=== PATIENT | female | born 1935 | race Caucasian/White ===

== ENCOUNTER 2017-10-08 12:51 | Inpatient (IN) | payer MEDICARE, OTHER ==
[2017-10-08] MEDS ORDERED: Sodium Chloride 0.9% 1,000 ML IV ONE (13:15)
--- NOTE | 2017-10-08 14:27 | EDM.PDOC ---
ED HPI GENERAL MEDICAL PROBLEM - General Chief Complaint: General Stated Complaint: NOT EATING OR DRINKING Time Seen by Provider: 10/08/17 13:00 Source of Information: Reports: Patient, Family History Limitations: Reports: Altered Mental Status, Physical Impairment - History of Present Illness INITIAL COMMENTS - FREE TEXT/NARRATIVE: 82 y.o.w.f came with her son to [facility] mental status changes. Pt is nonverbal for quite some time. Poor po intake in the past few days/weeks, last BM a few days ago, urine out put? Pt is npt able to give a HPI due to severe lethargy. BP 119/61 Temp 36.8 O2 94% on RA RR 20 Onset Date: 10/01/17 Onset Time: 06:00 Duration: Week(s):, Getting Worse Location: Reports: Generalized Severity: Severe - Related Data Allergies Allergy/AdvReac Type Severity Reaction Status Date / Time No Known Allergies Allergy Verified 10/08/17 13:35 Home Meds: Home Meds QUEtiapine [SEROquel] 25 mg PO BID 06/19/13 [History] Phytonadione [Vitamin K] 200 mcg PO DAILY 05/03/16 [History] glipiZIDE [Glipizide ER] 5 mg PO DAILY 05/03/16 [History] Acetaminophen [Tylenol] 650 mg PO Q6H PRN #0 tablet 05/04/16 [Rx] Warfarin [Coumadin] 2.5 mg PO SUMOWETHFR 05/04/16 [History] Warfarin [Coumadin] 3.75 mg PO TUSA 05/04/16 [History] Past Medical History HEENT History: Reports: Impaired Vision Cardiovascular History: Reports: Afib Gastrointestinal History: Reports: GERD 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 Endocrine/Metabolic History: Reports: Diabetes, Type II - Past Surgical History Female Surgical History: Reports: Section Social & Family History - Family History Family Medical History: Unobtainable Neurological: Reports: Cerebral Aneurysms Endocrine/Metabolic: Reports: Diabetes, type II - Tobacco Use Smoking Status *Q: Unknown Ever Smoked Years of Tobacco use: 1 Packs/Tins Daily: 0.1 - Caffeine Use Caffeine Use: Reports: None Other Caffeine Use: Unknown at this time. - Alcohol Use Days Per Week of Alcohol Use: 0 - Recreational Drug Use Recreational Drug Use: No ED ROS GENERAL - Review of Systems Review Of Systems: Unable To Obtain ED EXAM, GENERAL - Physical Exam Exam: See Below Exam Limited By: Altered Mental Status General Appearance: Lethargic, Severe Distress Eye Exam: Bilateral Eye: Abnormal EOM Ears: Normal External Exam Ear Exam: Bilateral Ear: Auricle Normal Nose: Normal Inspection, Normal Mucosa Throat/Mouth: No Airway Compromise, Other (dry mucosal membrane) Head: Atraumatic, Normocephalic Neck: Normal Inspection, Supple, Non-Tender, Full Range of Motion Respiratory/Chest: Lungs Clear (poor inspiratory effort), Other Cardiovascular: Normal Peripheral Pulses, Regular Rate, Rhythm, No JVD, No Murmur Peripheral Pulses: 1+: Brachial (L) GI/Abdominal: Normal Bowel Sounds (Female) Exam: Deferred Rectal (Female) Exam: Deferred Back Exam: Normal Inspection, Full Range of Motion Extremities: Normal Inspection, Normal Range of Motion Neurological: Inattentive, Confused, Slow to Respond, Abnormal Gait (unable to ambulate) Psychiatric: Depressed Mood, Flat Affect Skin Exam: Warm, Dry, Intact, Pallor Lymphatic: No Adenopathy EKG INTERPRETATION EKG Date: 10/08/17 Time: 13:15 Rhythm: NSR Rate (Beats/Min): 108 Somers: LAD-Left Somers Deviation P-Wave: Present QRS: Normal ST-T: Normal QT: Normal Comparison: NA - No Prior EKG Course - Vital Signs Text/Narrative:: 82 y.o.w.f came with her son to [facility] mental status changes. Pt is nonverbal for quite some time. Poor po intake in the past few days/weeks, last BM a few days ago, urine out put? Pt is not able to give a HPI due to severe lethargy. BP 119/61 Temp 36.8 O2 94% on RA RR 20 PE: obtunded 82 y.o.w.f severe dehydrated Labs: Na 170 Ka 4.1 Cr 5.67 Cl 131. Impression: Hypernatremia, Acute renal insuff, Hyperchloremia, severe dehydration, Anuria, Hyperglycemia Tx: NS/1/2NS 2.21 pm Consultation: Dr. Pennington: accepted pt for admission to ICU Last Recorded V/S: Last Vital Signs Temp 35.4 C 10/12/17 08:00 Pulse 71 10/12/17 04:00 Resp 18 10/12/17 08:00 BP 122/79 10/12/17 08:00 Pulse Ox 98 10/12/17 08:00 - Orders/Labs/Meds Orders: Medication Orders Aspirin (Ecotrin) 325 mg PO DAILY [facility] Last Admin: 10/12/17 10:35 Dose: 325 mg Donepezil HCl (Aricept) 5 mg PO DAILY [facility] Last Admin: 10/12/17 10:35 Dose: 5 mg Insulin Aspart (Novolog) 0 unit SUBCUT QIDACANDBED [facility] PRN Reason: Protocol Last Admin: 10/12/17 08:16 Dose: 2 units Admin: 10/11/17 21:59 Dose: 8 units Admin: 10/11/17 18:01 Dose: 4 units Admin: 10/11/17 14:36 Dose: 10 units Admin: 10/11/17 09:23 Dose: 6 units Metformin HCl (Glucophage) 500 mg PO BIDMEALS [facility] Last Admin: 10/12/17 10:35 Dose: 500 mg Mirtazapine (Remeron) 15 mg PO BEDTIME [facility] Sodium Chloride (Saline Flush) 10 ml FLUSH ASDIRECTED PRN PRN Reason: Keep Vein Open Last Admin: 10/11/17 09:26 Dose: 10 ml Labs: Laboratory Tests 10/08/17 10/08/17 10/08/17 Range/Units 13:30 13:30 13:30 WBC 11.9 (4.5-12.0) X10-3/uL RBC 6.25 H (3.23-5.20) x10(6)uL Hgb 17.7 H D (11.5-15.5) g/dL Hct 55.8 H D (30.0-51.3) % MCV 89.2 (80-96) fL MCH 28.2 (27.7-33.6) pg MCHC 31.7 L (32.2-35.4) g/dL RDW 16.2 H (11.5-15.5) % Plt Count 132 (125-369) X10(3)uL MPV 13.3 H (7.4-10.4) fL Neut % (Auto) 82.5 H (46-82) % Lymph % (Auto) 12.9 L (13-37) % Delta % (Auto) 3.9 L (4-12) % Eos % (Auto) 0 L (1.0-5.0) % Baso % (Auto) 1 (0-2) % Neut # (Auto) 9.8 H (1.6-8.3) # Lymph # (Auto) 1.5 (0.6-5.0) # Delta # (Auto) 0.5 (0.0-1.3) # Eos # (Auto) 0.0 (0.0-0.8) # Baso # (Auto) 0.1 (0.0-0.2) # PT 61.4 H* (8.7-11.1) INR 5.86 H* (0.89-1.13) Sodium 170 H* (135-145) mmol/L Potassium 4.7 (3.5-5.3) mmol/L Chloride 131 H* (100-110) mmol/L Carbon Dioxide 23 (21-32) mmol/L BUN 77 H (7-18) mg/dL Creatinine 3.4 H* (0.55-1.02) mg/dL Est Cr Clr Drug Dosing TNP Estimated GFR (MDRD) 13 L (>60) BUN/Creatinine Ratio 22.6 H (9-20) Glucose 540 H* (80-116) mg/dL Lactic Acid (0.4-2.2) mmol/L Calcium 9.6 (8.6-10.2) mg/dL Creatine Kinase (60-160) IU/L NT-Pro-B Natriuret Pep (<=450) pg/mL Urine Color (YELLOW) Urine Appearance (CLEAR) Urine pH (5.0-6.5) Ur Specific [place] (1.010-1.025) Urine Protein (NEGATIVE) mg/dL Urine Glucose (UA) (NEGATIVE) mg/dL Urine Ketones (NEGATIVE) mg/dL Urine Occult Blood (NEGATIVE) Urine Nitrite (NEGATIVE) Urine Bilirubin (NEGATIVE) Urine Urobilinogen (NEGATIVE) mg/dL Ur Leukocyte Esterase (NEGATIVE) Urine RBC (0) Urine WBC (0) Ur Squamous Epith Cells (NS,R,O) Amorphous Sediment Urine Bacteria (NS) 10/08/17 10/08/17 10/08/17 Range/Units 13:30 13:30 13:30 WBC (4.5-12.0) X10-3/uL RBC (3.23-5.20) x10(6)uL Hgb (11.5-15.5) g/dL Hct (30.0-51.3) % MCV (80-96) fL MCH (27.7-33.6) pg MCHC (32.2-35.4) g/dL RDW (11.5-15.5) % Plt Count (125-369) X10(3)uL MPV (7.4-10.4) fL Neut % (Auto) (46-82) % Lymph % (Auto) (13-37) % Delta % (Auto) (4-12) % Eos % (Auto) (1.0-5.0) % Baso % (Auto) (0-2) % Neut # (Auto) (1.6-8.3) # Lymph # (Auto) (0.6-5.0) # Delta # (Auto) (0.0-1.3) # Eos # (Auto) (0.0-0.8) # Baso # (Auto) (0.0-0.2) # PT (8.7-11.1) INR (0.89-1.13) Sodium (135-145) mmol/L Potassium (3.5-5.3) mmol/L Chloride (100-110) mmol/L Carbon Dioxide (21-32) mmol/L BUN (7-18) mg/dL Creatinine (0.55-1.02) mg/dL Est Cr Clr Drug Dosing Estimated GFR (MDRD) (>60) BUN/Creatinine Ratio (9-20) Glucose (80-116) mg/dL Lactic Acid 4.7 H (0.4-2.2) mmol/L Calcium (8.6-10.2) mg/dL Creatine Kinase 1370 H* (60-160) IU/L NT-Pro-B Natriuret Pep 560 H (<=450) pg/mL Urine Color (YELLOW) Urine Appearance (CLEAR) Urine pH (5.0-6.5) Ur Specific [place] (1.010-1.025) Urine Protein (NEGATIVE) mg/dL Urine Glucose (UA) (NEGATIVE) mg/dL Urine Ketones (NEGATIVE) mg/dL Urine Occult Blood (NEGATIVE) Urine Nitrite (NEGATIVE) Urine Bilirubin (NEGATIVE) Urine Urobilinogen (NEGATIVE) mg/dL Ur Leukocyte Esterase (NEGATIVE) Urine RBC (0) Urine WBC (0) Ur Squamous Epith Cells (NS,R,O) Amorphous Sediment Urine Bacteria (NS) 10/08/17 Range/Units 14:06 WBC (4.5-12.0) X10-3/uL RBC (3.23-5.20) x10(6)uL Hgb (11.5-15.5) g/dL Hct (30.0-51.3) % MCV (80-96) fL MCH (27.7-33.6) pg MCHC (32.2-35.4) g/dL RDW (11.5-15.5) % Plt Count (125-369) X10(3)uL MPV (7.4-10.4) fL Neut % (Auto) (46-82) % Lymph % (Auto) (13-37) % Delta % (Auto) (4-12) % Eos % (Auto) (1.0-5.0) % Baso % (Auto) (0-2) % Neut # (Auto) (1.6-8.3) # Lymph # (Auto) (0.6-5.0) # Delta # (Auto) (0.0-1.3) # Eos # (Auto) (0.0-0.8) # Baso # (Auto) (0.0-0.2) # PT (8.7-11.1) INR (0.89-1.13) Sodium (135-145) mmol/L Potassium (3.5-5.3) mmol/L Chloride (100-110) mmol/L Carbon Dioxide (21-32) mmol/L BUN (7-18) mg/dL Creatinine (0.55-1.02) mg/dL Est Cr Clr Drug Dosing Estimated GFR (MDRD) (>60) BUN/Creatinine Ratio (9-20) Glucose (80-116) mg/dL Lactic Acid (0.4-2.2) mmol/L Calcium (8.6-10.2) mg/dL Creatine Kinase (60-160) IU/L NT-Pro-B Natriuret Pep (<=450) pg/mL Urine Color Yellow (YELLOW) Urine Appearance Slightly cloudy (CLEAR) Urine pH 5.0 (5.0-6.5) Ur Specific [place] 1.025 (1.010-1.025) Urine Protein Negative (NEGATIVE) mg/dL Urine Glucose (UA) >1000 H (NEGATIVE) mg/dL Urine Ketones Negative (NEGATIVE) mg/dL Urine Occult Blood Negative (NEGATIVE) Urine Nitrite Negative (NEGATIVE) Urine Bilirubin Negative (NEGATIVE) Urine Urobilinogen Normal (NEGATIVE) mg/dL Ur Leukocyte Esterase Negative (NEGATIVE) Urine RBC 0-5 (0) Urine WBC 5-10 (0) Ur Squamous Epith Cells Moderate H (NS,R,O) Amorphous Sediment Moderate Urine Bacteria Moderate H (NS) Meds: Medications Generic Name Dose Route Start Last Admin Trade Name Freq PRN Reason Stop Dose Admin Aspirin 325 mg 10/12/17 09:15 10/12/17 10:35 Ecotrin PO 325 mg DAILY CORIE Administration Donepezil HCl 5 mg 10/12/17 09:30 10/12/17 10:35 Aricept PO 5 mg DAILY CORIE Administration Insulin Aspart 0 unit 10/11/17 08:30 10/12/17 08:16 Novolog SUBCUT 2 units QIDACANDBED CORIE Administration Protocol Metformin HCl 500 mg 10/12/17 09:30 10/12/17 10:35 Glucophage PO 500 mg BIDMEALS CORIE Administration Mirtazapine 15 mg 10/12/17 21:00 Remeron PO BEDTIME CORIE Sodium Chloride 10 ml 10/08/17 14:28 10/11/17 09:26 Saline Flush FLUSH 10 ml ASDIRECTED PRN Administration Keep Vein Open Discontinued Medications Generic Name Dose Route Start Last Admin Trade Name Freq PRN Reason Stop Dose Admin Furosemide 20 mg 10/12/17 09:15 Lasix PO BIDDIURETIC CORIE Sodium Chloride 1,000 mls @ 99 mls/hr 10/08/17 13:15 10/08/17 13:45 Normal Saline IV 10/08/17 23:21 99 mls/hr .BOLUS ONE Administration Insulin Human Regular 10 unit/ 500 mls @ 100 mls/hr 10/08/17 16:45 Dextrose/Water IV ASDIRECTED CORIE Protocol Sodium Chloride 1,000 mls @ 50 mls/hr 10/08/17 16:45 10/10/17 14:39 Sodium Chloride 0.45% IV 150 mls/hr ASDIRECTED CORIE Administration Insulin Human Regular 100 unit 100 mls @ 6.1 mls/hr 10/08/17 17:00 10/08/17 21:05 / Sodium Chloride IV 0 units/kg/hr TITRATE CORIE 0 mls/hr Protocol Titration 0.1 UNITS/KG/HR Sodium Chloride 1,000 mls @ 999 mls/hr 10/08/17 17:45 10/08/17 16:45 Sodium Chloride 0.45% IV 999 mls/hr ASDIRECTED CORIE Administration Insulin Aspart 0 unit 10/09/17 01:00 10/09/17 14:00 Novolog SUBCUT Not Given Q4H [facility] Protocol Insulin Aspart 0 unit 10/09/17 20:00 10/11/17 15:42 Novolog SUBCUT Not Given Q6H [facility]IE Protocol Ondansetron HCl 4 mg 10/08/17 14:28 Zofran IV Q4H PRN Nausea/Vomiting Rivastigmine 9.5 mg 10/12/17 09:15 Jayna RASMUSSEN DAILY [facility] Departure - Departure Time of Disposition: 19:00 Disposition: Admitted As Inpatient 68 Condition: Poor Clinical Impression: Hypernatremia - Discharge Information
[2017-10-08] MEDS ORDERED: Sodium Chloride 0.9% 10 ML Syringe FLUSH PRN (14:28)
[2017-10-08] MEDS ORDERED: Ondansetron 4 MG/2 ML SDV IV PRN (14:28)
[2017-10-08] MEDS: Sodium Chloride 0.45% 1,000 ML IV SCH ×2 (16:45→17:45)
[2017-10-08] MEDS ORDERED: Insulin Regular, Human 10 UNIT in Dextrose 10% in Water 499.9 ML IV SCH ×2 (16:45)
--- NOTE | 2017-10-08 16:51 | PCM.HP ---
H&P History of Present Illness - General Date of Service: 10/08/17 Admit Problem/Dx: Admission Diagnosis/Problem Admission Diagnosis/Problem Hypernatremia Source of Information: EMS, Family, Provider History Limitations: Reports: Altered Mental Status - History of Present Illness Initial Comments - Free Text/Narative: Molly is an 82-year-old female was severe dementia. History is taken from the son whom I talked to on the telephone and also from the ER physician. She has not been eating for the last 2-3 days and has grown increasingly weak. 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 No diarrhea or other complaints. Her son takes care of her home. 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 - Related Data Allergies/Adverse Reactions: Allergies Allergy/AdvReac Type Severity Reaction Status Date / Time No Known Allergies Allergy Verified 10/08/17 13:35 Home Medications: Home Meds QUEtiapine [SEROquel] 25 mg PO BID 06/19/13 [History] Phytonadione [Vitamin K] 200 mcg PO DAILY 05/03/16 [History] glipiZIDE [Glipizide ER] 5 mg PO DAILY 05/03/16 [History] Acetaminophen [Tylenol] 650 mg PO Q6H PRN #0 tablet 05/04/16 [Rx] Warfarin [Coumadin] 2.5 mg PO SUMOWETHFR 05/04/16 [History] Warfarin [Coumadin] 3.75 mg PO TUSA 05/04/16 [History] Past Medical History HEENT History: Reports: Impaired Vision Cardiovascular History: Reports: Afib Other Cardiovascular History: past hx hypertension, doctor stopped the darwin. 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 Endocrine/Metabolic History: Reports: Diabetes, Type II Other Endocrine/Metabolic History: glipizide4 Dermatologic History: Reports: Other (See Below) Other Dermatologic History: ulcer R buttock - Infectious Disease History Infectious Disease History: Reports: Chicken Pox - Past Surgical History Female Surgical History: Reports: Section Social & Family History - Family History Family Medical History: Unobtainable Neurological: Reports: Cerebral Aneurysms Endocrine/Metabolic: Reports: Diabetes, type II - Tobacco Use Smoking Status *Q: Unknown Ever Smoked Years of Tobacco use: 1 Packs/Tins Daily: 0.1 Used Tobacco, but Quit: Yes Month Tobacco Last Used: unknown Second Hand Smoke Exposure: No - Caffeine Use Caffeine Use: Reports: None Other Caffeine Use: Unknown at this time. - Alcohol Use Days Per Week of Alcohol Use: 0 - Recreational Drug Use Recreational Drug Use: No H&P Review of Systems - Review of Systems: Review Of Systems: Unable To Obtain Exam - Exam Exam: See Below - Vital Signs Vital Signs: Last Vital Signs Temp 98.7 F 10/08/17 15:46 Pulse 98 10/08/17 15:46 Resp 16 10/08/17 15:46 BP 154/127 H 10/08/17 15:46 Pulse Ox 99 10/08/17 15:46 Weight: 61.054 kg - Exam Quality Assessment: Supplemental Oxygen General: Obtunded. No: Alert HEENT: PERRLA Neck: Supple Lungs: Decreased Breath Sounds Cardiovascular: Regular Rate Rectal (Female) Exam: Deferred Extremities: No Pedal Edema Skin: Warm, Decubitis Psychiatric: No: Alert, Normal Affect - Patient Data Result Diagrams: 10/08/17 13:30 10/08/17 13:30 *Q Meaningful Use (ADM) - VTE *Q VTE Criteria *Q: - Stroke *Q Stroke Criteria *Q: - AMI *Q AMI Criteria *Q: - Problem List (1) Severe dehydration SNOMED Code(s): 617830880 ICD Code: E86.0 - DEHYDRATION Status: Acute Current Visit: Yes (2) Hyperkalemia SNOMED Code(s): 11895535 ICD Code: E87.5 - HYPERKALEMIA Status: Acute Current Visit: Yes (3) MARIMAR (acute kidney injury) SNOMED Code(s): 72692587 ICD Code: N17.9 - ACUTE KIDNEY FAILURE, UNSPECIFIED Status: Acute Current Visit: Yes (4) Dementia SNOMED Code(s): 98813583 ICD Code: F03.90 - UNSPECIFIED DEMENTIA WITHOUT BEHAVIORAL DISTURBANCE Status: Acute Current Visit: Yes (5) Delirium SNOMED Code(s): 4816362 ICD Code: R41.0 - DISORIENTATION, UNSPECIFIED Status: Acute Current Visit : Yes (6) DKA (diabetic ketoacidoses) SNOMED Code(s): 222683540 ICD Code: E13.10 - OTH DIABETES MELLITUS WITH KETOACIDOSIS WITHOUT COMA Status: Acute Current Visit: Yes Qualifiers: Diabetes mellitus type: type 2 (7) Palliative care status SNOMED Code(s): 403667135 ICD Code: Z51.5 - ENCOUNTER FOR PALLIATIVE CARE Status: Acute Current Visit: Yes (8) Atrial fibrillation, currently in sinus rhythm SNOMED Code(s): 36522989 ICD Code: I48.91 - UNSPECIFIED ATRIAL FIBRILLATION Status: Acute Current Visit: No Problem Details: Remains in NSR (9) Diabetes mellitus type 2 SNOMED Code(s): 84255685 ICD Code: E11.9 - TYPE 2 DIABETES MELLITUS WITHOUT COMPLICATIONS Status: Chronic Current Visit: No Problem List Initiated/Reviewed/Updated: Yes Orders Last 24hrs: Active Orders 24 hr Category Date Time Status Patient Status [ADT] Routine ADT 10/08/17 14:29 Active Bedrest Bathroom Privileges [RC] ASDIRECTED Care 10/08/17 16:43 Ordered Blood Glucose Check, Bedside [RC] Q2H Care 10/08/17 16:43 Ordered Height and Weight [RC] DAILY Care 10/08/17 16:43 Ordered Insert Rahman Catheter [Insert Urinary Catheter] [OM.PC] Care 10/08/17 14:45 Ordered Q24H Intake and Output [RC] QSHIFT Care 10/08/17 16:44 Ordered Oxygen Therapy Adult [Oxygen Therapy, ED] [RC] Care 10/08/17 14:30 Active ASDIRECTED Oxygen Therapy [RC] PRN Care 10/08/17 14:29 Active Oxygen Therapy [RC] PRN Care 10/08/17 16:43 Ordered Urinary Catheter Assessment [RC] QSHIFT Care 10/08/17 14:36 Active VTE/DVT Education [RC] Per Unit Routine Care 10/08/17 14:29 Active VTE/DVT Education [RC] Per Unit Routine Care 10/08/17 16:43 Ordered Vital Signs [RC] Q4H Care 10/08/17 14:29 Active Vital Signs [RC] Q4H Care 10/08/17 16:43 Ordered Consult to Hospice [CONS] Routine Cons 10/08/17 16:43 Ordered Nothing per Oral Now Diet [DIET] Diet 10/08/17 Breakfast Active CBC WITH AUTO DIFF [HEME] AM Lab 10/09/17 05:11 Ordered COMPREHENSIVE METABOLIC PN,CMP [CHEM] AM Lab 10/09/17 05:11 Ordered INR,PT,PROTHROMBIN TIME [COAG] AM Lab 10/09/17 05:11 Ordered MAGNESIUM [CHEM] AM Lab 10/09/17 05:11 Ordered PHOSPHORUS [CHEM] AM Lab 10/09/17 05:11 Ordered Ondansetron [Zofran] Med 10/08/17 14:28 Active 4 mg IV Q4H PRN Regular Insulin, Human 10 Units in D10W @ 100 MLS/HR( Med 10/08/17 16:45 Ordered 500ml) Insulin Regular, Human [HumuLIN R] 10 unit Dextrose 10% in Water 499.9 ml IV ASDIRECTED Sodium Chloride 0.45% @ 150 MLS/HR(1,000ml) Med 10/08/17 16:45 Ordered Sodium Chloride 0.45% 1,000 ml IV ASDIRECTED Sodium Chloride 0.9% [Saline Flush] Med 10/08/17 14:28 Active 10 ml FLUSH ASDIRECTED PRN Peripheral IV Insertion Adult [OM.PC] Routine Oth 10/08/17 14:28 Ordered Resuscitation Status Routine Resus Stat 10/08/17 14:28 Ordered Medication Orders Sodium Chloride (Normal Saline) 1,000 mls @ 99 mls/hr IV .BOLUS ONE Stop: 10/08/17 23:21 Last Admin: 10/08/17 13:45 Dose: 99 mls/hr Insulin Human Regular 10 unit/ (Dextrose/Water) 500 mls @ 100 mls/hr IV ASDIRECTED CORIE PRN Reason: Protocol Sodium Chloride (Sodium Chloride 0.45%) 1,000 mls @ 150 mls/hr IV ASDIRECTED [facility] Ondansetron HCl (Zofran) 4 mg IV Q4H PRN PRN Reason: Nausea/Vomiting Sodium Chloride (Saline Flush) 10 ml FLUSH ASDIRECTED PRN PRN Reason: Keep Vein Open Assessment/Plan Comment:: Patient is severely dehydrated, and delirious. She has very high anion gap with ketones in the urine suggestive of DKA. She also has acute kidney injury from dehydration. I'll start the bolus of half normal saline, and an insulin drip. I will then continue half-normal saline at 150 an hour. I will repeat a basic panel and a blood gas Mandy. I discussed with the son about de-escalation of care. He seems agreeable I believe will give her fluids and daily at bedtime tonight, repeat some labs in the morning and consult with hospice at that point depending on her condition. The prognosis is guarded
[2017-10-08] MEDS ORDERED: Sodium Chloride 0.45% 1,000 ML IV SCH (17:45)
[2017-10-09] MEDS: Sodium Chloride 0.45% 1,000 ML IV SCH ×4 (00:19→20:54)
[2017-10-09] MEDS: Insulin Aspart 100 Units/ML 3 ML Pen SUBCUT SCH ×5 (01:00→20:03)
--- NOTE | 2017-10-09 08:12 | PCM.PN ---
- General Info Date of Service: 10/09/17 Admission Dx/Problem (Free Text): Admission Diagnosis/Problem Admission Diagnosis/Problem Hypernatremia Subjective Update: Mental status has changed some of she's able to awake alert but still aphasic. Overnight her blood sugars improved in the insulin drip was discontinued - Review of Systems General: Reports: No Symptoms HEENT: Reports: No Symptoms Pulmonary: Reports: No Symptoms - Patient Data Vitals - Most Recent: Last Vital Signs Temp 95.6 F 10/09/17 07:54 Pulse 88 10/08/17 19:00 Resp 18 10/09/17 07:54 BP 134/84 10/09/17 07:54 Pulse Ox 98 10/09/17 07:54 Weight - Most Recent: 63.219 kg I&O - Last 24 Hours: Intake & Output 10/08/17 10/09/17 10/09/17 22:59 06:59 14:59 Intake Total 1675 1140 Output Total 220 125 Balance 1455 1015 Lab Results Last 24 Hours: Laboratory Results - last 24 hr 10/08/17 10/08/17 10/08/17 Range/Units 17:00 17:00 17:18 WBC (4.5-12.0) X10-3/uL RBC (3.23-5.20) x10(6)uL Hgb (11.5-15.5) g/dL Hct (30.0-51.3) % MCV (80-96) fL MCH (27.7-33.6) pg MCHC (32.2-35.4) g/dL RDW (11.5-15.5) % Plt Count (125-369) X10(3)uL MPV (7.4-10.4) fL Neut % (Auto) (46-82) % Lymph % (Auto) (13-37) % [place] % (Auto) (4-12) % Eos % (Auto) (1.0-5.0) % Baso % (Auto) (0-2) % Neut # (Auto) (1.6-8.3) # Lymph # (Auto) (0.6-5.0) # [place] # (Auto) (0.0-1.3) # Eos # (Auto) (0.0-0.8) # Baso # (Auto) (0.0-0.2) # PT (8.7-11.1) INR (0.89-1.13) POC VBG pH 7.30 L (7.31-7.41) POC VBG pCO2 49.2 (41-51) mmHG POC VBG HCO3 24.3 (23-28) mmol/L POC VBG Total CO2 26 (24-29) mmol/L POC VBG Base Excess -2 (-2-3) mmol/L Sodium 173 H* (135-145) mmol/L Potassium 4.8 (3.5-5.3) mmol/L Chloride 134 H* (100-110) mmol/L Carbon Dioxide 26 (21-32) mmol/L BUN 79 H (7-18) mg/dL Creatinine 3.2 H* (0.55-1.02) mg/dL Est Cr Clr Drug Dosing 13.51 mL/min Estimated GFR (MDRD) 14 L (>60) BUN/Creatinine Ratio 24.7 H (9-20) Glucose 501 H* (80-116) mg/dL POC Glucose 390 H (80-116) mg/dL Calcium 8.7 (8.6-10.2) mg/dL Phosphorus (2.6-4.6) mg/dL Magnesium (1.8-2.5) mg/dL Total Bilirubin (0.1-1.3) mg/dL AST (5-25) IU/L ALT (12-36) U/L Alkaline Phosphatase (56-112) IU/L Total Protein (6.0-8.0) g/dL Albumin (3.2-4.6) g/dL Globulin g/dL Albumin/Globulin Ratio 10/08/17 10/08/17 10/08/17 Range/Units 18:43 20:03 21:02 WBC (4.5-12.0) X10-3/uL RBC (3.23-5.20) x10(6)uL Hgb (11.5-15.5) g/dL Hct (30.0-51.3) % MCV (80-96) fL MCH (27.7-33.6) pg MCHC (32.2-35.4) g/dL RDW (11.5-15.5) % Plt Count (125-369) X10(3)uL MPV (7.4-10.4) fL Neut % (Auto) (46-82) % Lymph % (Auto) (13-37) % [place] % (Auto) (4-12) % Eos % (Auto) (1.0-5.0) % Baso % (Auto) (0-2) % Neut # (Auto) (1.6-8.3) # Lymph # (Auto) (0.6-5.0) # [place] # (Auto) (0.0-1.3) # Eos # (Auto) (0.0-0.8) # Baso # (Auto) (0.0-0.2) # PT (8.7-11.1) INR (0.89-1.13) POC VBG pH (7.31-7.41) POC VBG pCO2 (41-51) mmHG POC VBG HCO3 (23-28) mmol/L POC VBG Total CO2 (24-29) mmol/L POC VBG Base Excess (-2-3) mmol/L Sodium (135-145) mmol/L Potassium (3.5-5.3) mmol/L Chloride (100-110) mmol/L Carbon Dioxide (21-32) mmol/L BUN (7-18) mg/dL Creatinine (0.55-1.02) mg/dL Est Cr Clr Drug Dosing mL/min Estimated GFR (MDRD) (>60) BUN/Creatinine Ratio (9-20) Glucose (80-116) mg/dL POC Glucose 280 H D 213 H 160 H (80-116) mg/dL Calcium (8.6-10.2) mg/dL Phosphorus (2.6-4.6) mg/dL Magnesium (1.8-2.5) mg/dL Total Bilirubin (0.1-1.3) mg/dL AST (5-25) IU/L ALT (12-36) U/L Alkaline Phosphatase (56-112) IU/L Total Protein (6.0-8.0) g/dL Albumin (3.2-4.6) g/dL Globulin g/dL Albumin/Globulin Ratio 10/08/17 10/09/17 10/09/17 Range/Units 21:20 00:41 05:15 WBC (4.5-12.0) X10-3/uL RBC (3.23-5.20) x10(6)uL Hgb (11.5-15.5) g/dL Hct (30.0-51.3) % MCV (80-96) fL MCH (27.7-33.6) pg MCHC (32.2-35.4) g/dL RDW (11.5-15.5) % Plt Count (125-369) X10(3)uL MPV (7.4-10.4) fL Neut % (Auto) (46-82) % Lymph % (Auto) (13-37) % [place] % (Auto) (4-12) % Eos % (Auto) (1.0-5.0) % Baso % (Auto) (0-2) % Neut # (Auto) (1.6-8.3) # Lymph # (Auto) (0.6-5.0) # [place] # (Auto) (0.0-1.3) # Eos # (Auto) (0.0-0.8) # Baso # (Auto) (0.0-0.2) # PT (8.7-11.1) INR (0.89-1.13) POC VBG pH (7.31-7.41) POC VBG pCO2 (41-51) mmHG POC VBG HCO3 (23-28) mmol/L POC VBG Total CO2 (24-29) mmol/L POC VBG Base Excess (-2-3) mmol/L Sodium 172 H* (135-145) mmol/L Potassium 3.4 L D (3.5-5.3) mmol/L Chloride 135 H* (100-110) mmol/L Carbon Dioxide 25 (21-32) mmol/L BUN 75 H (7-18) mg/dL Creatinine 2.8 H* (0.55-1.02) mg/dL Est Cr Clr Drug Dosing 15.44 mL/min Estimated GFR (MDRD) 16 L (>60) BUN/Creatinine Ratio 26.8 H (9-20) Glucose 176 H D (80-116) mg/dL POC Glucose 123 H 130 H (80-116) mg/dL Calcium 8.1 L (8.6-10.2) mg/dL Phosphorus (2.6-4.6) mg/dL Magnesium (1.8-2.5) mg/dL Total Bilirubin (0.1-1.3) mg/dL AST (5-25) IU/L ALT (12-36) U/L Alkaline Phosphatase (56-112) IU/L Total Protein (6.0-8.0) g/dL Albumin (3.2-4.6) g/dL Globulin g/dL Albumin/Globulin Ratio 10/09/17 10/09/17 10/09/17 Range/Units 06:15 06:15 06:15 WBC 7.8 (4.5-12.0) X10-3/uL RBC 4.94 (3.23-5.20) x10(6)uL Hgb 13.7 D (11.5-15.5) g/dL Hct 43.7 D (30.0-51.3) % MCV 88.5 (80-96) fL MCH 27.8 (27.7-33.6) pg MCHC 31.4 L (32.2-35.4) g/dL RDW 16.3 H (11.5-15.5) % Plt Count 84 L (125-369) X10(3)uL MPV 12.9 H (7.4-10.4) fL Neut % (Auto) 76.8 (46-82) % Lymph % (Auto) 17.3 (13-37) % [place] % (Auto) 4.8 (4-12) % Eos % (Auto) 1 (1.0-5.0) % Baso % (Auto) 1 (0-2) % Neut # (Auto) 6.1 (1.6-8.3) # Lymph # (Auto) 1.3 (0.6-5.0) # [place] # (Auto) 0.4 (0.0-1.3) # Eos # (Auto) 0.0 (0.0-0.8) # Baso # (Auto) 0.0 (0.0-0.2) # PT 64.3 H* (8.7-11.1) INR 6.14 H* (0.89-1.13) POC VBG pH (7.31-7.41) POC VBG pCO2 (41-51) mmHG POC VBG HCO3 (23-28) mmol/L POC VBG Total CO2 (24-29) mmol/L POC VBG Base Excess (-2-3) mmol/L Sodium 169 H* (135-145) mmol/L Potassium 3.9 (3.5-5.3) mmol/L Chloride 133 H* (100-110) mmol/L Carbon Dioxide 27 (21-32) mmol/L BUN 70 H (7-18) mg/dL Creatinine 2.4 H* (0.55-1.02) mg/dL Est Cr Clr Drug Dosing 18.18 mL/min Estimated GFR (MDRD) 19 L (>60) BUN/Creatinine Ratio 29.2 H (9-20) Glucose 157 H (80-116) mg/dL POC Glucose (80-116) mg/dL Calcium 8.0 L (8.6-10.2) mg/dL Phosphorus 3.7 (2.6-4.6) mg/dL Magnesium 2.3 (1.8-2.5) mg/dL Total Bilirubin 0.6 (0.1-1.3) mg/dL AST 58 H (5-25) IU/L ALT 75 H (12-36) U/L Alkaline Phosphatase 149 H (56-112) IU/L Total Protein 5.8 L (6.0-8.0) g/dL Albumin 2.3 L (3.2-4.6) g/dL Globulin 3.5 g/dL Albumin/Globulin Ratio 0.7 Med Orders - Current: Current Medications Sodium Chloride (Sodium Chloride 0.45%) 1,000 mls @ 150 mls/hr IV ASDIRECTED [facility] Last Admin: 10/09/17 07:17 Dose: 150 mls/hr Sodium Chloride (Sodium Chloride 0.45%) 1,000 mls @ 999 mls/hr IV ASDIRECTED [facility] Last Admin: 10/08/17 16:45 Dose: 999 mls/hr Insulin Aspart (Novolog) 0 unit SUBCUT Q4H CORIE PRN Reason: Protocol Last Admin: 10/09/17 05:22 Dose: Not Given Ondansetron HCl (Zofran) 4 mg IV Q4H PRN PRN Reason: Nausea/Vomiting Sodium Chloride (Saline Flush) 10 ml FLUSH ASDIRECTED PRN PRN Reason: Keep Vein Open Discontinued Medications Sodium Chloride (Normal Saline) 1,000 mls @ 99 mls/hr IV .BOLUS ONE Stop: 10/08/17 23:21 Last Admin: 10/08/17 13:45 Dose: 99 mls/hr Insulin Human Regular 10 unit/ (Dextrose/Water) 500 mls @ 100 mls/hr IV ASDIRECTED CORIE PRN Reason: Protocol Insulin Human Regular 100 unit (/ Sodium Chloride) 100 mls @ 6.1 mls/hr IV TITRATE CORIE; 0.1 UNITS/KG/HR PRN Reason: Protocol Last Titration: 10/08/17 21:05 Dose: 0 units/kg/hr, 0 mls/hr - Exam Quality Assessment: Supplemental Oxygen General: Alert HEENT: Pupils Equal, Pupils Reactive, EOMI, Mucous Membr. Moist/[place] Neck: Supple Lungs: Clear to Auscultation, Normal Respiratory Effort Cardiovascular: Regular Rate, Regular Rhythm GI/Abdominal Exam: Normal Bowel Sounds, Soft, Non-Tender, No Organomegaly, No Distention, No Abnormal Bruit, No Mass, Pelvis Stable (Female) Exam: Deferred Back Exam: Normal Inspection Extremities: Normal Inspection, Normal Range of Motion, Non-Tender, No Pedal Edema, Normal Capillary Refill Skin: Warm, Dry, Intact Wound/Incisions: Healing Well Neurological: No New Focal Deficit Psy/Mental Status: Alert - Problem List & Annotations (1) Severe dehydration SNOMED Code(s): 468492524 Code(s): E86.0 - DEHYDRATION Status: Acute Current Visit: Yes (2) MARIMAR (acute kidney injury) SNOMED Code(s): 26447941 Code(s): N17.9 - ACUTE KIDNEY FAILURE, UNSPECIFIED Status: Acute Current Visit: Yes (3) Dementia SNOMED Code(s): 24168686 Code(s): F03.90 - UNSPECIFIED DEMENTIA WITHOUT BEHAVIORAL DISTURBANCE Status: Acute Current Visit: Yes Qualifiers: Dementia type: Alzheimer's disease (4) Delirium SNOMED Code(s): 1706512 Code(s): R41.0 - DISORIENTATION, UNSPECIFIED Status: Acute Current Visit : Yes (5) DKA (diabetic ketoacidoses) SNOMED Code(s): 152101627 Code(s): E13.10 - OTH DIABETES MELLITUS WITH KETOACIDOSIS WITHOUT COMA Status: Acute Current Visit: Yes Qualifiers: Diabetes mellitus type: type 2 (6) Palliative care status SNOMED Code(s): 537047099 Code(s): Z51.5 - ENCOUNTER FOR PALLIATIVE CARE Status: Acute Current Visit: Yes (7) Atrial fibrillation, currently in sinus rhythm SNOMED Code(s): 82027723 Code(s): I48.91 - UNSPECIFIED ATRIAL FIBRILLATION Status: Acute Current Visit: No Annotation/Comment:: Remains in NSR (8) Diabetes mellitus type 2 SNOMED Code(s): 66204615 Code(s): E11.9 - TYPE 2 DIABETES MELLITUS WITHOUT COMPLICATIONS Status: Chronic Current Visit: No (9) Hypernatremia SNOMED Code(s): 56003096 Code(s): E87.0 - HYPEROSMOLALITY AND HYPERNATREMIA Status: Acute Current Visit: Yes - Problem List Review Problem List Initiated/Reviewed/Updated: Yes - My Orders Last 24 Hours: My Active Orders 10/08/17 14:06 CULTURE URINE [RM] Routine 10/08/17 16:43 Bedrest Bathroom Privileges [RC] ASDIRECTED Height and Weight [RC] 06 Oxygen Therapy [RC] PRN Vital Signs [RC] 08,12,16,20,00,04 Consult to Hospice [CONS] Routine 10/08/17 16:44 Intake and Output [RC] 06,14,22 10/08/17 16:45 Sodium Chloride 0.45% 1,000 ml IV ASDIRECTED 10/08/17 17:45 Sodium Chloride 0.45% 1,000 ml IV ASDIRECTED 10/09/17 08:07 Patient Status Manage Transfer [TRANSFER] Routine Chest 1V Frontal [CR] Routine 10/10/17 05:11 CBC WITH AUTO DIFF [HEME] AM COMPREHENSIVE METABOLIC PN,CMP [CHEM] AM LACTIC ACID [CHEM] AM - Plan Plan:: Given the she is alert, she still aphasic. Sodium is 169 this morning. Sugars have improved. Her creatinine is down to 2.6. I still feel that her prognosis is guarded and the likelihood of returning to baseline is normal. I'll continued IV fluid supplementation oxygen get a chest x-ray and repeat some lab work in the morning. Meantime I'll consult with hospice care to discuss options for terminal or end-of-life care. It is my belief that the son was interested in discussion of this de-escalation of care.
[2017-10-10] MEDS: Insulin Aspart 100 Units/ML 3 ML Pen SUBCUT SCH ×4 (02:22→19:53)
[2017-10-10] MEDS: Sodium Chloride 0.45% 1,000 ML IV SCH ×2 (03:34→14:39)
--- NOTE | 2017-10-10 08:33 | PCM.PN ---
- General Info Date of Service: 10/10/17 Subjective Update: Molly looks much better today. She is seated up eating alert but aphasic. His big turnaround from yesterday. No fever reported Functional Status: Reports: Tolerating Diet. Denies: Ambulating - Review of Systems General: Reports: Weakness HEENT: Reports: No Symptoms Pulmonary: Reports: No Symptoms Cardiovascular: Reports: No Symptoms Neurological: Reports: Other (Aphasia) - Patient Data Vitals - Most Recent: Last Vital Signs Temp 97.8 F 10/10/17 04:00 Pulse 71 10/10/17 04:00 Resp 18 10/10/17 04:00 BP 128/68 10/10/17 04:00 Pulse Ox 98 10/10/17 04:00 Weight - Most Recent: 63.503 kg I&O - Last 24 Hours: Intake & Output 10/09/17 10/10/17 10/10/17 22:59 06:59 14:59 Intake Total 1096 990 Output Total 300 300 Balance 796 690 Lab Results Last 24 Hours: Laboratory Results - last 24 hr 10/09/17 10/09/17 10/09/17 Range/Units 09:25 14:47 20:01 WBC (4.5-12.0) X10-3/uL RBC (3.23-5.20) x10(6)uL Hgb (11.5-15.5) g/dL Hct (30.0-51.3) % MCV (80-96) fL MCH (27.7-33.6) pg MCHC (32.2-35.4) g/dL RDW (11.5-15.5) % Plt Count (125-369) X10(3)uL MPV (7.4-10.4) fL Neut % (Auto) (46-82) % Lymph % (Auto) (13-37) % [place] % (Auto) (4-12) % Eos % (Auto) (1.0-5.0) % Baso % (Auto) (0-2) % Neut # (Auto) (1.6-8.3) # Lymph # (Auto) (0.6-5.0) # [place] # (Auto) (0.0-1.3) # Eos # (Auto) (0.0-0.8) # Baso # (Auto) (0.0-0.2) # Sodium (135-145) mmol/L Potassium (3.5-5.3) mmol/L Chloride (100-110) mmol/L Carbon Dioxide (21-32) mmol/L BUN (7-18) mg/dL Creatinine (0.55-1.02) mg/dL Est Cr Clr Drug Dosing mL/min Estimated GFR (MDRD) (>60) BUN/Creatinine Ratio (9-20) Glucose (80-116) mg/dL POC Glucose 141 H 113 80 (80-116) mg/dL Lactic Acid (0.4-2.2) mmol/L Calcium (8.6-10.2) mg/dL Total Bilirubin (0.1-1.3) mg/dL AST (5-25) IU/L ALT (12-36) U/L Alkaline Phosphatase (56-112) IU/L Total Protein (6.0-8.0) g/dL Albumin (3.2-4.6) g/dL Globulin g/dL Albumin/Globulin Ratio 10/10/17 10/10/17 10/10/17 Range/Units 01:41 06:35 06:35 WBC 5.0 (4.5-12.0) X10-3/uL RBC 4.31 (3.23-5.20) x10(6)uL Hgb 12.3 (11.5-15.5) g/dL Hct 37.7 (30.0-51.3) % MCV 87.4 (80-96) fL MCH 28.6 (27.7-33.6) pg MCHC 32.7 (32.2-35.4) g/dL RDW 15.6 H (11.5-15.5) % Plt Count 55 L (125-369) X10(3)uL MPV 9.8 (7.4-10.4) fL Neut % (Auto) 72.8 (46-82) % Lymph % (Auto) 20.7 (13-37) % [place] % (Auto) 4.5 (4-12) % Eos % (Auto) 2 (1.0-5.0) % Baso % (Auto) 0 (0-2) % Neut # (Auto) 3.7 (1.6-8.3) # Lymph # (Auto) 1.0 (0.6-5.0) # [place] # (Auto) 0.2 (0.0-1.3) # Eos # (Auto) 0.1 (0.0-0.8) # Baso # (Auto) 0.0 (0.0-0.2) # Sodium 158 H D (135-145) mmol/L Potassium 3.3 L (3.5-5.3) mmol/L Chloride 125 H* D (100-110) mmol/L Carbon Dioxide 24 (21-32) mmol/L BUN 45 H D (7-18) mg/dL Creatinine 1.5 H (0.55-1.02) mg/dL Est Cr Clr Drug Dosing 29.09 mL/min Estimated GFR (MDRD) 33 L (>60) BUN/Creatinine Ratio 30.0 H (9-20) Glucose 134 H (80-116) mg/dL POC Glucose 70 L (80-116) mg/dL Lactic Acid (0.4-2.2) mmol/L Calcium 7.3 L (8.6-10.2) mg/dL Total Bilirubin 0.6 (0.1-1.3) mg/dL AST 50 H D (5-25) IU/L ALT 61 H D (12-36) U/L Alkaline Phosphatase 132 H (56-112) IU/L Total Protein 4.8 L (6.0-8.0) g/dL Albumin 2.0 L (3.2-4.6) g/dL Globulin 2.8 g/dL Albumin/Globulin Ratio 0.7 02/25/18 Range/Units 06:35 WBC (4.5-12.0) X10-3/uL RBC (3.23-5.20) x10(6)uL Hgb (11.5-15.5) g/dL Hct (30.0-51.3) % MCV (80-96) fL MCH (27.7-33.6) pg MCHC (32.2-35.4) g/dL RDW (11.5-15.5) % Plt Count (125-369) X10(3)uL MPV (7.4-10.4) fL Neut % (Auto) (46-82) % Lymph % (Auto) (13-37) % [place] % (Auto) (4-12) % Eos % (Auto) (1.0-5.0) % Baso % (Auto) (0-2) % Neut # (Auto) (1.6-8.3) # Lymph # (Auto) (0.6-5.0) # [place] # (Auto) (0.0-1.3) # Eos # (Auto) (0.0-0.8) # Baso # (Auto) (0.0-0.2) # Sodium (135-145) mmol/L Potassium (3.5-5.3) mmol/L Chloride (100-110) mmol/L Carbon Dioxide (21-32) mmol/L BUN (7-18) mg/dL Creatinine (0.55-1.02) mg/dL Est Cr Clr Drug Dosing mL/min Estimated GFR (MDRD) (>60) BUN/Creatinine Ratio (9-20) Glucose (80-116) mg/dL POC Glucose (80-116) mg/dL Lactic Acid 0.9 (0.4-2.2) mmol/L Calcium (8.6-10.2) mg/dL Total Bilirubin (0.1-1.3) mg/dL AST (5-25) IU/L ALT (12-36) U/L Alkaline Phosphatase (56-112) IU/L Total Protein (6.0-8.0) g/dL Albumin (3.2-4.6) g/dL Globulin g/dL Albumin/Globulin Ratio Med Orders - Current: Current Medications Sodium Chloride (Sodium Chloride 0.45%) 1,000 mls @ 50 mls/hr IV ASDIRECTED [facility] Last Admin: 10/10/17 03:34 Dose: 150 mls/hr Insulin Aspart (Novolog) 0 unit SUBCUT Q6H CORIE PRN Reason: Protocol Last Admin: 10/10/17 07:57 Dose: Not Given Ondansetron HCl (Zofran) 4 mg IV Q4H PRN PRN Reason: Nausea/Vomiting Sodium Chloride (Saline Flush) 10 ml FLUSH ASDIRECTED PRN PRN Reason: Keep Vein Open Discontinued Medications Sodium Chloride (Normal Saline) 1,000 mls @ 99 mls/hr IV .BOLUS ONE Stop: 10/08/17 23:21 Last Admin: 10/08/17 13:45 Dose: 99 mls/hr Insulin Human Regular 10 unit/ (Dextrose/Water) 500 mls @ 100 mls/hr IV ASDIRECTED CORIE PRN Reason: Protocol Insulin Human Regular 100 unit (/ Sodium Chloride) 100 mls @ 6.1 mls/hr IV TITRATE CORIE; 0.1 UNITS/KG/HR PRN Reason: Protocol Last Titration: 10/08/17 21:05 Dose: 0 units/kg/hr, 0 mls/hr Sodium Chloride (Sodium Chloride 0.45%) 1,000 mls @ 999 mls/hr IV ASDIRECTED CORIE Last Admin: 10/08/17 16:45 Dose: 999 mls/hr Insulin Aspart (Novolog) 0 unit SUBCUT Q4H CORIE PRN Reason: Protocol Last Admin: 10/09/17 14:00 Dose: Not Given - Exam Quality Assessment: No: Supplemental Oxygen General: Alert, Oriented, No Acute Distress HEENT: Pupils Equal Neck: Supple Lungs: Clear to Auscultation Cardiovascular: Regular Rate Extremities: No Pedal Edema Psy/Mental Status: Alert, Other (Aphasic) - Problem List & Annotations (1) Aphasia SNOMED Code(s): 06720791 Code(s): R47.01 - APHASIA Status: Acute Current Visit: Yes (2) Severe dehydration SNOMED Code(s): 230559503 Code(s): E86.0 - DEHYDRATION Status: Acute Current Visit: Yes (3) MARIMAR (acute kidney injury) SNOMED Code(s): 14583470 Code(s): N17.9 - ACUTE KIDNEY FAILURE, UNSPECIFIED Status: Acute Current Visit: Yes (4) Dementia SNOMED Code(s): 04427355 Code(s): F03.90 - UNSPECIFIED DEMENTIA WITHOUT BEHAVIORAL DISTURBANCE Status: Acute Current Visit: Yes Qualifiers: Dementia type: Alzheimer's disease (5) Delirium SNOMED Code(s): 3316375 Code(s): R41.0 - DISORIENTATION, UNSPECIFIED Status: Acute Current Visit : Yes (6) DKA (diabetic ketoacidoses) SNOMED Code(s): 436516325 Code(s): E13.10 - OTH DIABETES MELLITUS WITH KETOACIDOSIS WITHOUT COMA Status: Acute Current Visit: Yes Qualifiers: Diabetes mellitus type: type 2 (7) Palliative care status SNOMED Code(s): 401306695 Code(s): Z51.5 - ENCOUNTER FOR PALLIATIVE CARE Status: Acute Current Visit: Yes (8) Atrial fibrillation, currently in sinus rhythm SNOMED Code(s): 53120881 Code(s): I48.91 - UNSPECIFIED ATRIAL FIBRILLATION Status: Acute Current Visit: No Annotation/Comment:: Remains in NSR (9) Diabetes mellitus type 2 SNOMED Code(s): 61111499 Code(s): E11.9 - TYPE 2 DIABETES MELLITUS WITHOUT COMPLICATIONS Status: Chronic Current Visit: No (10) Hypernatremia SNOMED Code(s): 89394260 Code(s): E87.0 - HYPEROSMOLALITY AND HYPERNATREMIA Status: Acute Current Visit: Yes (11) Decubitus ulcer SNOMED Code(s): 190627947 Code(s): L89.90 - PRESSURE ULCER OF UNSPECIFIED SITE, UNSPECIFIED STAGE Status: Acute Current Visit: Yes Qualifiers: Pressure ulcer location: sacral region - Problem List Review Problem List Initiated/Reviewed/Updated: Yes - My Orders Last 24 Hours: My Active Orders 10/09/17 08:07 Chest 1V Frontal [CR] Routine 10/09/17 20:00 Insulin Aspart [NovoLOG] See Protocol SUBCUT Q6H 10/10/17 08:26 OT Evaluation and Treatment [CONS] Routine PT Evaluation and Treatment [CONS] Routine 10/10/17 Breakfast Mechanical Soft Diet [DIET] 10/11/17 05:11 CBC WITH AUTO DIFF [HEME] AM COMPREHENSIVE METABOLIC PN,CMP [CHEM] AM PRO B-TYPE NATRIUR PEPT,BNPPRO [CHEM] DAILY - Plan Plan:: Despite marked improvement patient's prognosis still remains critical. I sodium has improved to 156. She is sitting up more alert and eating. She is still aphasic but has been that since June. I believe most likely due to a stroke. I will decrease the IV fluid rate to 50 mL an hour. I will repeat lab work in the morning. I've encouraged frequent position turning, and Duoderm for pressure ulcer. I'll consult physical and outpatient therapy to determine disposition along with auditor medical claims.
[2017-10-11] MEDS: Insulin Aspart 100 Units/ML 3 ML Pen SUBCUT SCH ×6 (03:10→21:59)
--- NOTE | 2017-10-11 08:35 | PCM.PN ---
- General Info Date of Service: 10/11/17 Subjective Update: Molly continues to show marked improvement in terms of alertness. She is eating pured food.. Does not communicate. No shortness of breath chest pain or cough, fever or instability of vital signs was noted by the staff overnight - Patient Data Vitals - Most Recent: Last Vital Signs Temp 98.4 F 10/11/17 04:00 Pulse 80 10/11/17 04:00 Resp 20 10/11/17 04:00 BP 121/68 10/11/17 04:00 Pulse Ox 94 L 10/11/17 04:00 Weight - Most Recent: 67.33 kg I&O - Last 24 Hours: Intake & Output 10/10/17 10/11/17 10/11/17 22:59 06:59 14:59 Intake Total 825 Output Total 925 Balance -100 Lab Results Last 24 Hours: Laboratory Results - last 24 hr 10/10/17 10/10/17 10/11/17 Range/Units 13:35 19:50 03:07 WBC (4.5-12.0) X10-3/uL RBC (3.23-5.20) x10(6)uL Hgb (11.5-15.5) g/dL Hct (30.0-51.3) % MCV (80-96) fL MCH (27.7-33.6) pg MCHC (32.2-35.4) g/dL RDW (11.5-15.5) % Plt Count (125-369) X10(3)uL MPV (7.4-10.4) fL Neut % (Auto) (46-82) % Lymph % (Auto) (13-37) % Crawford % (Auto) (4-12) % Eos % (Auto) (1.0-5.0) % Baso % (Auto) (0-2) % Neut # (Auto) (1.6-8.3) # Lymph # (Auto) (0.6-5.0) # Crawford # (Auto) (0.0-1.3) # Eos # (Auto) (0.0-0.8) # Baso # (Auto) (0.0-0.2) # Sodium (135-145) mmol/L Potassium (3.5-5.3) mmol/L Chloride (100-110) mmol/L Carbon Dioxide (21-32) mmol/L BUN (7-18) mg/dL Creatinine (0.55-1.02) mg/dL Est Cr Clr Drug Dosing mL/min Estimated GFR (MDRD) (>60) BUN/Creatinine Ratio (9-20) Glucose (80-116) mg/dL POC Glucose 210 H D 228 H 298 H (80-116) mg/dL Calcium (8.6-10.2) mg/dL Total Bilirubin (0.1-1.3) mg/dL AST (5-25) IU/L ALT (12-36) U/L Alkaline Phosphatase (56-112) IU/L NT-Pro-B Natriuret Pep (<=450) pg/mL Total Protein (6.0-8.0) g/dL Albumin (3.2-4.6) g/dL Globulin g/dL Albumin/Globulin Ratio 10/11/17 10/11/17 10/11/17 Range/Units 06:40 06:40 06:40 WBC 6.0 (4.5-12.0) X10-3/uL RBC 4.22 (3.23-5.20) x10(6)uL Hgb 12.2 (11.5-15.5) g/dL Hct 36.2 (30.0-51.3) % MCV 85.8 (80-96) fL MCH 28.8 (27.7-33.6) pg MCHC 33.6 (32.2-35.4) g/dL RDW 15.4 (11.5-15.5) % Plt Count 65 L (125-369) X10(3)uL MPV 11.1 H (7.4-10.4) fL Neut % (Auto) 76.0 (46-82) % Lymph % (Auto) 16.4 (13-37) % Crawford % (Auto) 6.3 (4-12) % Eos % (Auto) 1 (1.0-5.0) % Baso % (Auto) 0 (0-2) % Neut # (Auto) 4.5 (1.6-8.3) # Lymph # (Auto) 1.0 (0.6-5.0) # Crawford # (Auto) 0.4 (0.0-1.3) # Eos # (Auto) 0.1 (0.0-0.8) # Baso # (Auto) 0.0 (0.0-0.2) # Sodium 151 H (135-145) mmol/L Potassium 3.5 (3.5-5.3) mmol/L Chloride 118 H* D (100-110) mmol/L Carbon Dioxide 23 (21-32) mmol/L BUN 39 H (7-18) mg/dL Creatinine 1.4 H (0.55-1.02) mg/dL Est Cr Clr Drug Dosing 31.17 mL/min Estimated GFR (MDRD) 36 L (>60) BUN/Creatinine Ratio 27.9 H (9-20) Glucose 293 H D (80-116) mg/dL POC Glucose (80-116) mg/dL Calcium 7.3 L (8.6-10.2) mg/dL Total Bilirubin 0.5 (0.1-1.3) mg/dL AST 32 H D (5-25) IU/L ALT 52 H D (12-36) U/L Alkaline Phosphatase 126 H (56-112) IU/L NT-Pro-B Natriuret Pep 1075 H* (<=450) pg/mL Total Protein 4.9 L (6.0-8.0) g/dL Albumin 1.9 L (3.2-4.6) g/dL Globulin 3.0 g/dL Albumin/Globulin Ratio 0.6 Med Orders - Current: Current Medications Sodium Chloride (Sodium Chloride 0.45%) 1,000 mls @ 50 mls/hr IV ASDIRECTED [facility] Last Admin: 10/10/17 14:39 Dose: 150 mls/hr Insulin Aspart (Novolog) 0 unit SUBCUT Q6H CORIE PRN Reason: Protocol Last Admin: 10/11/17 03:10 Dose: 6 units Ondansetron HCl (Zofran) 4 mg IV Q4H PRN PRN Reason: Nausea/Vomiting Sodium Chloride (Saline Flush) 10 ml FLUSH ASDIRECTED PRN PRN Reason: Keep Vein Open Discontinued Medications Sodium Chloride (Normal Saline) 1,000 mls @ 99 mls/hr IV .BOLUS ONE Stop: 10/08/17 23:21 Last Admin: 10/08/17 13:45 Dose: 99 mls/hr Insulin Human Regular 10 unit/ (Dextrose/Water) 500 mls @ 100 mls/hr IV ASDIRECTED CORIE PRN Reason: Protocol Insulin Human Regular 100 unit (/ Sodium Chloride) 100 mls @ 6.1 mls/hr IV TITRATE CORIE; 0.1 UNITS/KG/HR PRN Reason: Protocol Last Titration: 10/08/17 21:05 Dose: 0 units/kg/hr, 0 mls/hr Sodium Chloride (Sodium Chloride 0.45%) 1,000 mls @ 999 mls/hr IV ASDIRECTED CORIE Last Admin: 10/08/17 16:45 Dose: 999 mls/hr Insulin Aspart (Novolog) 0 unit SUBCUT Q4H CORIE PRN Reason: Protocol Last Admin: 10/09/17 14:00 Dose: Not Given - Exam Quality Assessment: No: Supplemental Oxygen General: Alert, No Acute Distress. No: Oriented, Cooperative HEENT: Pupils Equal Neck: Supple Lungs: Crackles Cardiovascular: Regular Rate Extremities: No Pedal Edema. No: Pedal Edema Psy/Mental Status: Alert - Problem List & Annotations (1) Aphasia SNOMED Code(s): 80475231 Code(s): R47.01 - APHASIA Status: Acute Current Visit: Yes (2) Severe dehydration SNOMED Code(s): 827720862 Code(s): E86.0 - DEHYDRATION Status: Acute Current Visit: Yes (3) MARIMAR (acute kidney injury) SNOMED Code(s): 20838283 Code(s): N17.9 - ACUTE KIDNEY FAILURE, UNSPECIFIED Status: Acute Current Visit: Yes (4) Dementia SNOMED Code(s): 09758083 Code(s): F03.90 - UNSPECIFIED DEMENTIA WITHOUT BEHAVIORAL DISTURBANCE Status: Acute Current Visit: Yes Qualifiers: Dementia type: Alzheimer's disease (5) Delirium SNOMED Code(s): 8647494 Code(s): R41.0 - DISORIENTATION, UNSPECIFIED Status: Acute Current Visit : Yes (6) DKA (diabetic ketoacidoses) SNOMED Code(s): 453602102 Code(s): E13.10 - OTH DIABETES MELLITUS WITH KETOACIDOSIS WITHOUT COMA Status: Acute Current Visit: Yes Qualifiers: Diabetes mellitus type: type 2 (7) Palliative care status SNOMED Code(s): 116570491 Code(s): Z51.5 - ENCOUNTER FOR PALLIATIVE CARE Status: Acute Current Visit: Yes (8) Atrial fibrillation, currently in sinus rhythm SNOMED Code(s): 58586627 Code(s): I48.91 - UNSPECIFIED ATRIAL FIBRILLATION Status: Acute Current Visit: No Annotation/Comment:: Remains in NSR (9) Diabetes mellitus type 2 SNOMED Code(s): 06728901 Code(s): E11.9 - TYPE 2 DIABETES MELLITUS WITHOUT COMPLICATIONS Status: Chronic Current Visit: No (10) Hypernatremia SNOMED Code(s): 46534996 Code(s): E87.0 - HYPEROSMOLALITY AND HYPERNATREMIA Status: Acute Current Visit: Yes (11) Decubitus ulcer SNOMED Code(s): 984951860 Code(s): L89.90 - PRESSURE ULCER OF UNSPECIFIED SITE, UNSPECIFIED STAGE Status: Acute Current Visit: Yes Qualifiers: Pressure ulcer location: sacral region - Problem List Review Problem List Initiated/Reviewed/Updated: Yes - My Orders Last 24 Hours: My Active Orders 10/10/17 08:26 OT Evaluation and Treatment [CONS] Routine PT Evaluation and Treatment [CONS] Routine 10/10/17 Dinner Pureed Diet [DIET] 10/11/17 08:15 Convert IV to Saline Lock [OM.PC] Stat 10/11/17 08:23 Accu Check [Blood Glucose Check, Bedside] [RC] 07,1130,1730,21 10/12/17 05:11 BASIC METABOLIC PANEL,BMP [CHEM] AM PRO B-TYPE NATRIUR PEPT,BNPPRO [CHEM] DAILY - Plan Plan:: Despite marked improvement patient's prognosis still remains critical. I sodium has improved to 151. She is sitting up more alert and eating. She is still aphasic but did speak once to the nurse overnight. I believe most likely due to a stroke vs Dementia. I will heplock her IV. I will repeat lab work in the morning. I've encouraged frequent position turning, and Duoderm for pressure ulcer. I'll consult physical and outpatient therapy to determine disposition along with medical lab assistant.?detention
--- NOTE | 2017-10-11 13:22 | CR ---
INDICATION: Short of breath. CHEST: Portable AP upright view of the chest 10/09/2017, compared with 2015 and 10/24/2015 revealed the heart to appear enlarged. The aorta is tortuous with calcification in the arch. Overlying EKG leads are noted. Elevated right hemidiaphragm is again noted. There appears to be increased density behind the heart, as previously, which may be on the basis of a large fixed hiatal hernia but cannot exclude pneumonia at the lung base - lower lobe left. The upper lung field pulmonary vasculature does not appear to be significantly increased to suggest CHF. IMPRESSION: Stable chest compared with 05/03/2016. No definite acute process - findings as noted above. When clinically possible, PA and lateral views of the chest may be helpful for further evaluation. MTDD
[2017-10-12] MEDS: Insulin Aspart 100 Units/ML 3 ML Pen SUBCUT SCH ×4 (08:16→20:58)
--- NOTE | 2017-10-12 09:06 | PCM.PN ---
- General Info Date of Service: 10/12/17 Subjective Update: Molly is awake and has done better than expected. However she still has difficulty ablation and does not want to eat. She still aphasic. Her blood pressure has remained within reference range. Functional Status: Denies: Ambulating - Patient Data Vitals - Most Recent: Last Vital Signs Temp 96.1 F 10/12/17 04:00 Pulse 71 10/12/17 04:00 Resp 16 10/12/17 04:00 BP 100/55 L 10/12/17 04:00 Pulse Ox 97 10/12/17 04:00 Weight - Most Recent: 69.082 kg I&O - Last 24 Hours: Intake & Output 10/11/17 10/12/17 10/12/17 22:59 06:59 14:59 Intake Total 550 30 Output Total 325 325 Balance 225 -295 Lab Results Last 24 Hours: Laboratory Results - last 24 hr 10/11/17 10/11/17 10/11/17 Range/Units 10:10 14:20 16:32 PT 28.1 H (8.7-11.1) INR 2.72 H (0.89-1.13) Sodium (135-145) mmol/L Potassium (3.5-5.3) mmol/L Chloride (100-110) mmol/L Carbon Dioxide (21-32) mmol/L BUN (7-18) mg/dL Creatinine (0.55-1.02) mg/dL Est Cr Clr Drug Dosing mL/min Estimated GFR (MDRD) (>60) BUN/Creatinine Ratio (9-20) Glucose (80-116) mg/dL POC Glucose 355 H 283 H (80-116) mg/dL Calcium (8.6-10.2) mg/dL NT-Pro-B Natriuret Pep (<=450) pg/mL 10/11/17 10/12/17 10/12/17 Range/Units 21:21 06:00 06:00 PT (8.7-11.1) INR (0.89-1.13) Sodium 152 H (135-145) mmol/L Potassium 3.3 L (3.5-5.3) mmol/L Chloride 119 H* (100-110) mmol/L Carbon Dioxide 24 (21-32) mmol/L BUN 24 H D (7-18) mg/dL Creatinine 1.3 H (0.55-1.02) mg/dL Est Cr Clr Drug Dosing 33.56 mL/min Estimated GFR (MDRD) 39 L (>60) BUN/Creatinine Ratio 18.5 (9-20) Glucose 201 H D (80-116) mg/dL POC Glucose 301 H (80-116) mg/dL Calcium 7.7 L (8.6-10.2) mg/dL NT-Pro-B Natriuret Pep 838 H (<=450) pg/mL 10/12/17 Range/Units 06:08 PT (8.7-11.1) INR (0.89-1.13) Sodium (135-145) mmol/L Potassium (3.5-5.3) mmol/L Chloride (100-110) mmol/L Carbon Dioxide (21-32) mmol/L BUN (7-18) mg/dL Creatinine (0.55-1.02) mg/dL Est Cr Clr Drug Dosing mL/min Estimated GFR (MDRD) (>60) BUN/Creatinine Ratio (9-20) Glucose (80-116) mg/dL POC Glucose 184 H D (80-116) mg/dL Calcium (8.6-10.2) mg/dL NT-Pro-B Natriuret Pep (<=450) pg/mL Med Orders - Current: Current Medications Aspirin (Aspirin) 325 mg PO DAILY CORIE Furosemide (Lasix) 20 mg PO BIDDIURETIC CORIE Insulin Aspart (Novolog) 0 unit SUBCUT QIDACANDBED CORIE PRN Reason: Protocol Last Admin: 10/12/17 08:16 Dose: 2 units Ondansetron HCl (Zofran) 4 mg IV Q4H PRN PRN Reason: Nausea/Vomiting Rivastigmine (Exelon) 9.5 mg TRDERM DAILY CORIE Sodium Chloride (Saline Flush) 10 ml FLUSH ASDIRECTED PRN PRN Reason: Keep Vein Open Last Admin: 10/11/17 09:26 Dose: 10 ml Discontinued Medications Sodium Chloride (Normal Saline) 1,000 mls @ 99 mls/hr IV .BOLUS ONE Stop: 10/08/17 23:21 Last Admin: 10/08/17 13:45 Dose: 99 mls/hr Insulin Human Regular 10 unit/ (Dextrose/Water) 500 mls @ 100 mls/hr IV ASDIRECTED CORIE PRN Reason: Protocol Sodium Chloride (Sodium Chloride 0.45%) 1,000 mls @ 50 mls/hr IV ASDIRECTED CORIE Last Admin: 10/10/17 14:39 Dose: 150 mls/hr Insulin Human Regular 100 unit (/ Sodium Chloride) 100 mls @ 6.1 mls/hr IV TITRATE CORIE; 0.1 UNITS/KG/HR PRN Reason: Protocol Last Titration: 10/08/17 21:05 Dose: 0 units/kg/hr, 0 mls/hr Sodium Chloride (Sodium Chloride 0.45%) 1,000 mls @ 999 mls/hr IV ASDIRECTED CORIE Last Admin: 10/08/17 16:45 Dose: 999 mls/hr Insulin Aspart (Novolog) 0 unit SUBCUT Q4H CORIE PRN Reason: Protocol Last Admin: 10/09/17 14:00 Dose: Not Given Insulin Aspart (Novolog) 0 unit SUBCUT Q6H CORIE PRN Reason: Protocol Last Admin: 10/11/17 15:42 Dose: Not Given - Exam Quality Assessment: No: Supplemental Oxygen General: Alert HEENT: Pupils Equal Lungs: Clear to Auscultation Cardiovascular: Regular Rate Psy/Mental Status: Other (aphasic) - Problem List & Annotations (1) Aphasia SNOMED Code(s): 71268223 Code(s): R47.01 - APHASIA Status: Acute Current Visit: Yes (2) Severe dehydration SNOMED Code(s): 028775971 Code(s): E86.0 - DEHYDRATION Status: Acute Current Visit: Yes (3) MARIMAR (acute kidney injury) SNOMED Code(s): 26886796 Code(s): N17.9 - ACUTE KIDNEY FAILURE, UNSPECIFIED Status: Acute Current Visit: Yes (4) Dementia SNOMED Code(s): 24205602 Code(s): F03.90 - UNSPECIFIED DEMENTIA WITHOUT BEHAVIORAL DISTURBANCE Status: Acute Current Visit: Yes Qualifiers: Dementia type: Alzheimer's disease (5) Delirium SNOMED Code(s): 0266039 Code(s): R41.0 - DISORIENTATION, UNSPECIFIED Status: Acute Current Visit : Yes (6) DKA (diabetic ketoacidoses) SNOMED Code(s): 159017244 Code(s): E13.10 - OTH DIABETES MELLITUS WITH KETOACIDOSIS WITHOUT COMA Status: Acute Current Visit: Yes Qualifiers: Diabetes mellitus type: type 2 (7) Palliative care status SNOMED Code(s): 827186838 Code(s): Z51.5 - ENCOUNTER FOR PALLIATIVE CARE Status: Acute Current Visit: Yes (8) Atrial fibrillation, currently in sinus rhythm SNOMED Code(s): 01567160 Code(s): I48.91 - UNSPECIFIED ATRIAL FIBRILLATION Status: Acute Current Visit: No Annotation/Comment:: Remains in NSR (9) Diabetes mellitus type 2 SNOMED Code(s): 38927580 Code(s): E11.9 - TYPE 2 DIABETES MELLITUS WITHOUT COMPLICATIONS Status: Chronic Current Visit: No (10) Hypernatremia SNOMED Code(s): 25874462 Code(s): E87.0 - HYPEROSMOLALITY AND HYPERNATREMIA Status: Acute Current Visit: Yes (11) Decubitus ulcer SNOMED Code(s): 741092029 Code(s): L89.90 - PRESSURE ULCER OF UNSPECIFIED SITE, UNSPECIFIED STAGE Status: Acute Current Visit: Yes Qualifiers: Pressure ulcer location: sacral region - Problem List Review Problem List Initiated/Reviewed/Updated: Yes - My Orders Last 24 Hours: My Active Orders 10/11/17 08:15 Convert IV to Saline Lock [OM.PC] Stat 10/11/17 08:23 Accu Check [Blood Glucose Check, Bedside] [RC] 07,1130,1730,21 10/11/17 08:30 Insulin Aspart [NovoLOG] 0 unit SUBCUT QIDACANDBED 10/11/17 08:35 Consult to Rope Walker [CONS] Routine 10/12/17 09:15 Aspirin 325 mg PO DAILY Furosemide [Lasix] 20 mg PO BID Rivastigmine [Exelon] 9.5 mg TRDERM DAILY 10/12/17 21:00 Mirtazapine [Remeron] 15 mg PO BEDTIME 10/13/17 05:11 BASIC METABOLIC PANEL,BMP [CHEM] AM CBC WITH AUTO DIFF [HEME] AM - Plan Plan:: The dehydration has improved. I will oral medications. I believe that she has dementia which has not been addressed properly and possibly depression. I will start Exelon Patch, and mirtazapine to help with appetite 15 mg at night. I'll start aspirin for anticoagulation and primary prevention for cerebrovascular disease. I don't believe she is a good candidate for Coumadin. I will start metformin since her creatinine is down to 1.5. I will order an A1c repeat some labs in the morning and continued physical therapy today with the plan of possibly sending her back home with home health tomorrow.
[2017-10-12] MEDS ORDERED: Furosemide 20 MG Tab PO SCH (09:15)
[2017-10-12] MEDS ORDERED: Rivastigmine 9.5 MG/24 HR Transdermal Patch TRDERM SCH (09:15)
[2017-10-12] MEDS: Aspirin 325 MG Tab.EC PO SCH (10:35)
[2017-10-12] MEDS: Donepezil 5 MG Tab PO SCH (10:35)
[2017-10-12] MEDS: metFORMIN 500 MG Tab PO SCH ×2 (10:35→17:37)
[2017-10-12] MEDS ORDERED: Mirtazapine 15 MG Tab PO SCH (21:00)
[2017-10-13] MEDS: Insulin Aspart 100 Units/ML 3 ML Pen SUBCUT SCH ×2 (08:01→16:16)
[2017-10-13] MEDS: metFORMIN 500 MG Tab PO SCH (08:02)
[2017-10-13] MEDS: Donepezil 5 MG Tab PO SCH (08:03)
[2017-10-13] MEDS: Aspirin 325 MG Tab.EC PO SCH (08:03)
[2017-10-13 08:44] VITALS: BP 126/85
--- NOTE | 2017-10-13 08:54 | PCM.PN ---
- General Info Date of Service: 10/13/17 Subjective Update: Molly is awake and has done better than expected. However she still has difficulty ablation and does not want to eat. She still aphasic. Her blood pressure has remained within reference range. - Review of Systems General: Reports: No Symptoms Pulmonary: Reports: No Symptoms Gastrointestinal: Reports: No Symptoms - Patient Data Vitals - Most Recent: Last Vital Signs Temp 97.6 F 10/13/17 08:00 Pulse 95 10/13/17 08:00 Resp 16 10/13/17 08:00 BP 126/85 10/13/17 08:00 Pulse Ox 97 10/13/17 08:00 Weight - Most Recent: 67.313 kg I&O - Last 24 Hours: Intake & Output 10/12/17 10/13/17 10/13/17 22:59 06:59 14:59 Intake Total 100 0 Output Total 250 Balance -150 0 Lab Results Last 24 Hours: Laboratory Results - last 24 hr 10/12/17 10/12/17 10/12/17 Range/Units 11:55 17:18 20:53 WBC (4.5-12.0) X10-3/uL RBC (3.23-5.20) x10(6)uL Hgb (11.5-15.5) g/dL Hct (30.0-51.3) % MCV (80-96) fL MCH (27.7-33.6) pg MCHC (32.2-35.4) g/dL RDW (11.5-15.5) % Plt Count (125-369) X10(3)uL MPV (7.4-10.4) fL Neut % (Auto) (46-82) % Lymph % (Auto) (13-37) % Arthur % (Auto) (4-12) % Eos % (Auto) (1.0-5.0) % Baso % (Auto) (0-2) % Neut # (Auto) (1.6-8.3) # Lymph # (Auto) (0.6-5.0) # Arthur # (Auto) (0.0-1.3) # Eos # (Auto) (0.0-0.8) # Baso # (Auto) (0.0-0.2) # Sodium (135-145) mmol/L Potassium (3.5-5.3) mmol/L Chloride (100-110) mmol/L Carbon Dioxide (21-32) mmol/L BUN (7-18) mg/dL Creatinine (0.55-1.02) mg/dL Est Cr Clr Drug Dosing mL/min Estimated GFR (MDRD) (>60) BUN/Creatinine Ratio (9-20) Glucose (80-116) mg/dL POC Glucose 248 H 284 H 245 H (80-116) mg/dL Calcium (8.6-10.2) mg/dL 10/13/17 10/13/17 10/13/17 Range/Units 05:59 06:00 06:00 WBC 6.5 (4.5-12.0) X10-3/uL RBC 4.35 (3.23-5.20) x10(6)uL Hgb 12.5 (11.5-15.5) g/dL Hct 37.5 (30.0-51.3) % MCV 86.2 (80-96) fL MCH 28.9 (27.7-33.6) pg MCHC 33.5 (32.2-35.4) g/dL RDW 15.2 (11.5-15.5) % Plt Count 74 L (125-369) X10(3)uL MPV 11.3 H (7.4-10.4) fL Neut % (Auto) 78.6 (46-82) % Lymph % (Auto) 13.2 (13-37) % Arthur % (Auto) 6.6 (4-12) % Eos % (Auto) 1 (1.0-5.0) % Baso % (Auto) 0 (0-2) % Neut # (Auto) 5.1 (1.6-8.3) # Lymph # (Auto) 0.9 (0.6-5.0) # Arthur # (Auto) 0.4 (0.0-1.3) # Eos # (Auto) 0.1 (0.0-0.8) # Baso # (Auto) 0.0 (0.0-0.2) # Sodium 149 H (135-145) mmol/L Potassium 3.8 (3.5-5.3) mmol/L Chloride 116 H* (100-110) mmol/L Carbon Dioxide 25 (21-32) mmol/L BUN 23 H (7-18) mg/dL Creatinine 1.3 H (0.55-1.02) mg/dL Est Cr Clr Drug Dosing 33.56 mL/min Estimated GFR (MDRD) 39 L (>60) BUN/Creatinine Ratio 17.7 (9-20) Glucose 345 H D (80-116) mg/dL POC Glucose 336 H D (80-116) mg/dL Calcium 7.8 L (8.6-10.2) mg/dL Med Orders - Current: Current Medications Aspirin (Ecotrin) 325 mg PO DAILY [facility] Last Admin: 10/13/17 08:03 Dose: 325 mg Donepezil HCl (Aricept) 5 mg PO DAILY [facility] Last Admin: 10/13/17 08:03 Dose: 5 mg Insulin Aspart (Novolog) 0 unit SUBCUT QIDACANDBED [facility] PRN Reason: Protocol Last Admin: 10/13/17 08:01 Dose: 8 units Metformin HCl (Glucophage) 500 mg PO BIDMEALS [facility] Last Admin: 10/13/17 08:02 Dose: 500 mg Mirtazapine (Remeron) 15 mg PO BEDTIME [facility] Last Admin: 10/12/17 20:57 Dose: 15 mg Sodium Chloride (Saline Flush) 10 ml FLUSH ASDIRECTED PRN PRN Reason: Keep Vein Open Last Admin: 10/11/17 09:26 Dose: 10 ml Discontinued Medications Furosemide (Lasix) 20 mg PO BIDDIURETIC [facility] Sodium Chloride (Normal Saline) 1,000 mls @ 99 mls/hr IV .BOLUS ONE Stop: 10/08/17 23:21 Last Admin: 10/08/17 13:45 Dose: 99 mls/hr Insulin Human Regular 10 unit/ (Dextrose/Water) 500 mls @ 100 mls/hr IV ASDIRECTED CORIE PRN Reason: Protocol Sodium Chloride (Sodium Chloride 0.45%) 1,000 mls @ 50 mls/hr IV ASDIRECTED [facility] Last Admin: 10/10/17 14:39 Dose: 150 mls/hr Insulin Human Regular 100 unit (/ Sodium Chloride) 100 mls @ 6.1 mls/hr IV TITRATE CORIE; 0.1 UNITS/KG/HR PRN Reason: Protocol Last Titration: 10/08/17 21:05 Dose: 0 units/kg/hr, 0 mls/hr Sodium Chloride (Sodium Chloride 0.45%) 1,000 mls @ 999 mls/hr IV ASDIRECTED [facility] Last Admin: 10/08/17 16:45 Dose: 999 mls/hr Insulin Aspart (Novolog) 0 unit SUBCUT Q4H CORIE PRN Reason: Protocol Last Admin: 10/09/17 14:00 Dose: Not Given Insulin Aspart (Novolog) 0 unit SUBCUT Q6H CORIE PRN Reason: Protocol Last Admin: 10/11/17 15:42 Dose: Not Given Ondansetron HCl (Zofran) 4 mg IV Q4H PRN PRN Reason: Nausea/Vomiting Rivastigmine (Exelon) 9.5 mg TRDERM DAILY CORIE - Exam Quality Assessment: No: Supplemental Oxygen General: Alert. No: Oriented, Cooperative HEENT: Pupils Equal Neck: Supple Lungs: Clear to Auscultation - Problem List & Annotations (1) Aphasia SNOMED Code(s): 77997060 Code(s): R47.01 - APHASIA Status: Acute Current Visit: Yes (2) Severe dehydration SNOMED Code(s): 285067187 Code(s): E86.0 - DEHYDRATION Status: Acute Current Visit: Yes (3) MARIMAR (acute kidney injury) SNOMED Code(s): 82693833 Code(s): N17.9 - ACUTE KIDNEY FAILURE, UNSPECIFIED Status: Acute Current Visit: Yes (4) Dementia SNOMED Code(s): 03430058 Code(s): F03.90 - UNSPECIFIED DEMENTIA WITHOUT BEHAVIORAL DISTURBANCE Status: Acute Current Visit: Yes Qualifiers: Dementia type: Alzheimer's disease (5) Delirium SNOMED Code(s): 5487880 Code(s): R41.0 - DISORIENTATION, UNSPECIFIED Status: Acute Current Visit : Yes (6) DKA (diabetic ketoacidoses) SNOMED Code(s): 979552111 Code(s): E13.10 - OTH DIABETES MELLITUS WITH KETOACIDOSIS WITHOUT COMA Status: Acute Current Visit: Yes Qualifiers: Diabetes mellitus type: type 2 (7) Palliative care status SNOMED Code(s): 785517072 Code(s): Z51.5 - ENCOUNTER FOR PALLIATIVE CARE Status: Acute Current Visit: Yes (8) Atrial fibrillation, currently in sinus rhythm SNOMED Code(s): 64964407 Code(s): I48.91 - UNSPECIFIED ATRIAL FIBRILLATION Status: Acute Current Visit: No Annotation/Comment:: Remains in NSR (9) Diabetes mellitus type 2 SNOMED Code(s): 90863881 Code(s): E11.9 - TYPE 2 DIABETES MELLITUS WITHOUT COMPLICATIONS Status: Chronic Current Visit: No (10) Hypernatremia SNOMED Code(s): 93880059 Code(s): E87.0 - HYPEROSMOLALITY AND HYPERNATREMIA Status: Acute Current Visit: Yes (11) Decubitus ulcer SNOMED Code(s): 863076783 Code(s): L89.90 - PRESSURE ULCER OF UNSPECIFIED SITE, UNSPECIFIED STAGE Status: Acute Current Visit: Yes Qualifiers: Pressure ulcer location: sacral region - Problem List Review Problem List Initiated/Reviewed/Updated: Yes - My Orders Last 24 Hours: My Active Orders 10/12/17 09:15 Aspirin [Ecotrin] 325 mg PO DAILY 10/12/17 09:30 Donepezil [Aricept] 5 mg PO DAILY metFORMIN [Glucophage] 500 mg PO BIDMEALS 10/12/17 21:00 Mirtazapine [Remeron] 15 mg PO BEDTIME - Plan Plan:: The dehydration has improved. I will discharge the patient home to the son along with home health.
--- NOTE | 2017-10-13 12:00 | DISCH ---
DISCHARGE DATE: 10/13/2017 REASON FOR ADMISSION: Alteration of mental status, hypernatremia, diabetic ketoacidosis, aphasia, atrial fibrillation, severe dehydration, palliative care status, type 2 diabetes. DISCHARGE DIAGNOSES: Severe dehydration, hypernatremia, acute kidney injury, dementia, delirium, diabetic ketoacidosis, type 2 diabetes, atrial fibrillation, and aphasia. BRIEF HISTORY AND HOSPITAL COURSE: This is an 82-year-old female brought in by the son because of difficulty in eating, weakness, lethargy, unresponsiveness, was found to have a sodium of 170. Creatinine was 3.4 on admission. Anion gap was almost unmeasurable. She has a history of aphasia since last year, thought to be due to either stroke or dementia. She does have a history of Alzheimer's dementia as well. She has atrial fibrillation and is on Coumadin. She was admitted for rehydration, which was performed by half-normal saline and was given insulin drip to correct the hyperglycemia. Over the few days, she improved in terms of alertness, but remained aphasic. Her strength was still below par. Physical Therapy was involved, they suggested [facility] facility, but patient's family declined. They would like to go home. Hospice was also reviewed, but given the patient's remarkable improvement, this was put on hold. The patient was discharged on Home Health. I discontinued Coumadin, metoprolol, and glipizide. I started Remeron 15 mg daily and Aricept 5 mg a day. I recommended a followup visit to Dr. Gong within 1 week of discharge. She will need Home Health at home with PT and OT. I spent more than 35 minutes in the discharge of the patient. /[id number] [place]
== END 2017-10-13 12:16 | disposition home health service (06) | DRG 640 ==
LOC: FB.ED 12:51 → FB.ICU 14:27 → FB.MS 10-09 08:00
PROVIDERS: ADMIT Family Medicine; ATTEND Family Medicine
DX: E86.0 Dehydration (principal); E11.10 Type 2 diabetes mellitus with ketoacidosis without coma; N17.9 Acute kidney failure, unspecified; F05 Delirium due to known physiological condition; R47.01 Aphasia; I48.91 Unspecified atrial fibrillation; G30.9 Alzheimer's disease, unspecified; F02.80 Dementia in other diseases classified elsewhere, unspecified severity, without behavioral disturbance, psychotic disturbance, mood disturbance, and anxiety; E11.65 Type 2 diabetes mellitus with hyperglycemia; E87.0 Hyperosmolality and hypernatremia; E11.622 Type 2 diabetes mellitus with other skin ulcer; L98.419 Non-pressure chronic ulcer of buttock with unspecified severity; Z51.5 Encounter for palliative care; R41.82 Altered mental status, unspecified; R53.83 Other fatigue; Z87.891 Personal history of nicotine dependence; Z79.01 Long term (current) use of anticoagulants; Z79.84 Long term (current) use of oral hypoglycemic drugs; H54.7 Unspecified visual loss
CPT/HCPCS: 36415; 80048; 81001; 82550; 83605; 83880; 85025; 85610; 87086; 96360; 99285; J7040; 36410; 51702; 71045; 80053; 82803; 82962; 83735; 84100; 93005; 97161-GP; 97165-GO; 97530-GP; A9270-GY; J1815; J3490; J7030; J7050